=== PATIENT | female | born 1995 | race American Indian/Alaskan Native ===

== ENCOUNTER 2019-04-05 17:08 | Emergency (ER) | payer OTHER ==
[~2019-04-05] VITALS: Ht 165.1 cm; Wt 70.3 kg
[2019-04-05] MEDS ORDERED: SUBOXONE 4 MG-1 EACH PO (17:16)
== END 2019-04-05 19:13 | disposition home or self-care (01) ==
LOC: ER 17:08
DX: L02.415 Cutaneous abscess of right lower limb (principal); F17.200 Nicotine dependence, unspecified, uncomplicated; Z79.899 Other long term (current) drug therapy
CPT/HCPCS: 10061; 99283-25

== ENCOUNTER 2020-12-04 07:48 | Emergency (ER) | payer OTHER ==
[~2020-12-04] VITALS: Ht 165.1 cm; Wt 54.4 kg
[~2020-12-04 07:48] MED LIST: Bactrim Ds Tab1 EACH PO; CEPH500 PO; SUBOXONE 4 MG-1 EACH PO
[2020-12-04] MEDS ORDERED: Cleocin HCl300 MG PO (08:41)
== END 2020-12-04 08:54 | disposition home or self-care (01) ==
LOC: ER 07:48
DX: L02.416 Cutaneous abscess of left lower limb (principal); F17.200 Nicotine dependence, unspecified, uncomplicated
CPT/HCPCS: 99282